=== PATIENT | male | born 1980 | race Caucasian/White ===

== ENCOUNTER 2017-08-18 08:56 | Day surgery (SDC) | payer BC ==
[~2017-08-18 08:56] MED LIST: LIDOCAINE 2% (SDV) 5 ML INJ
[2017-08-18 10:27] LABS: ADD MAN DIFF? NO
[2017-08-18 10:35] LABS: BASOPHILS % 0.3 % (0.0-2.0); EOSINOPHILS # 0.1 10^3/ul (0.0-0.5); EOSINOPHILS % 0.8 % (0.0-7.0); HEMATOCRIT 41.9 % (42.0-52.0); HEMOGLOBIN 13.7 g/dl (14.0-18.0); LYMPHOCYTES # 1.3 10^3/ul (0.8-2.9); LYMPHOCYTES % 21.7 % (15.0-51.0); MEAN CORPUSCULAR HGB CONC 32.7 g/dl (32.0-37.0); MEAN CORPUSCULAR VOLUME 88.8 fl (82.0-101.0); MONOCYTE # 0.4 10^3/ul (0.3-0.9); MONOCYTES % 6.6 % (0.0-11.0); NEUTROPHIL # 4.2 10^3/ul (1.6-7.5); NEUTROPHILS % 70.4 % (39.0-77.0); PLATELET COUNT 245 10^3/UL (140-415); RED BLOOD COUNT 4.72 10^6/ul (4.70-6.10); RED CELL DISTRIBUTION WIDTH 12.1 % (11.5-14.5)
[2017-08-18 10:35] LABS: WHITE BLOOD COUNT 5.9 10^3/ul (4.8-10.8)
[2017-08-18 10:48] LABS: ALANINE AMINOTRANSFERASE 47 IU/L (13-69); ALBUMIN 4.5 g/dl (3.3-4.9); ALBUMIN/GLOBULIN RATIO 1.45; ALKALINE PHOSPHATASE 60 IU/L (42-121); ANION GAP 17 (8-16); ASPARTATE AMINO TRANSFERASE 33 IU/L (15-46); BILIRUBIN,INDIRECT 0.8 mg/dl (0-1.1); BILIRUBIN,TOTAL 0.8 mg/dl (0.2-1.3); CARBON DIOXIDE 30 mmol/L (21-31); CHLORIDE 105 mmol/L (97-110); GLUCOSE 110 mg/dl (70-220); TOTAL PROTEIN 7.6 g/dl (6.1-8.1)
[2017-08-18 10:52] LABS: BLOOD UREA NITROGEN 12 mg/dl (7-20); CALCIUM 9.6 mg/dl (8.4-10.2); CREATININE 0.79 mg/dl (0.61-1.24); POTASSIUM 4.9 mmol/L (3.5-5.1); SODIUM 147 mmol/L (135-144)
[2017-08-18 10:55] LABS: INR 0.95; PROTIME 12.8 Sec (11.9-14.9)
[2017-08-18 10:56] LABS: PARTIAL THROMBOPLASTIN TIME 29.5 Sec (25.0-35.0)
[2017-08-18] MEDS ORDERED: SOD CHLORIDE 0.9% 1,000 ML IV (11:00)
[2017-08-18] MEDS ORDERED: PROPOFOL 20 ML (14:08)
[2017-08-18] MEDS ORDERED: ROCURONIUM 50 MG INJ (14:10)
[2017-08-18] MEDS ORDERED: CEFAZOLIN 1 GM INJ (14:10)
[2017-08-18] MEDS ORDERED: LABETALOL HCL 20MG INJ IV (14:30)
[2017-08-18] MEDS ORDERED: hydrALAzine 20 MG INJ IV (14:30)
[2017-08-18] MEDS ORDERED: MIDAZOLAM 1 MG/ML 2 ML INJ IV (14:30)
[2017-08-18] MEDS ORDERED: ALBUTEROL 0.083% (NEB) 2.5 MG/3 ML AMP HHN (14:30)
[2017-08-18] MEDS ORDERED: FENTAnyl 50 MCG/ML VIAL IV ×2 (14:30)
[2017-08-18] MEDS ORDERED: EPHEDrine SULFATE 50 MG/5 ML SYG IV (14:30)
[2017-08-18] MEDS ORDERED: OXYCODONE/ACETAMINOPHEN (5/325) TAB PO ×2 (14:30)
[2017-08-18] MEDS ORDERED: HYDROmorphONE 1 MG/5 ML IV SYRINGE IV ×2 (14:30)
[2017-08-18] MEDS ORDERED: MEPERIDINE 25 MG INJ IV (14:30)
[2017-08-18] MEDS ORDERED: METOCLOPRAMIDE 10 MG INJ IV (14:30)
[2017-08-18] MEDS ORDERED: ONDANSETRON 4 MG INJ IV (14:30)
[2017-08-18] MEDS: CEFAZOLIN 2 GM/50 ML (PMX) 50 ML IVPB (14:30)
[2017-08-18] MEDS ORDERED: DIPHENHYDRAMINE 50 MG INJ IV (14:30)
[2017-08-18] MEDS: BUPIVACAINE 0.25% (MPF) 30 ML INJ (14:53)
[2017-08-18] MEDS ORDERED: SUGAMMADEX SODIUM 200 MG/2 ML VIAL IV (15:03)
[2017-08-18] MEDS: FENTAnyl 50 MCG/ML VIAL IV ×2 (15:24→15:36)
[2017-08-18] MEDS ORDERED: HYDROCODONE/APAP (5/325) TAB PO (15:30)
[2017-08-18] MEDS: HYDROmorphONE 1 MG/5 ML IV SYRINGE IV (15:38)
== END 2017-08-18 17:53 | disposition home or self-care (01) ==
LOC: SDS 08:56
DX: K64.4 Residual hemorrhoidal skin tags (principal); K64.8 Other hemorrhoids
CPT/HCPCS: 46255; 80053; 85025; 85610; 85730; 88304

== ENCOUNTER 2018-01-19 06:55 | Day surgery (SDC) | payer BC ==
[2018-01-19] MEDS ORDERED: SOD CHLORIDE 0.9% 1,000 ML IV (07:00)
[2018-01-19] MEDS ORDERED: BUPIVACAINE 0.25% (MPF) 30 ML INJ (09:26)
[2018-01-19] MEDS ORDERED: FENTAnyl 50 MCG/ML VIAL (09:51)
[2018-01-19] MEDS ORDERED: MIDAZOLAM 1 MG/ML 2 ML INJ (09:51)
[2018-01-19] MEDS: BUPIVACAINE 0.25% (MPF) 30 ML INJ INJ ×2 (10:24)
[2018-01-19] MEDS ORDERED: LIDOCAINE 2% (SDV) 5 ML INJ (10:41)
[2018-01-19] MEDS ORDERED: CEFAZOLIN 1 GM INJ (10:41)
[2018-01-19] MEDS ORDERED: PROPOFOL 20 ML (10:41)
[2018-01-19] MEDS ORDERED: NEOSTIGMINE 3 MG/3 ML SYRINGE (10:41)
[2018-01-19] MEDS ORDERED: ROCURONIUM 50 MG INJ (10:41)
[2018-01-19] MEDS ORDERED: GLYCOPYRROLATE 0.4 MG INJ (10:41)
[2018-01-19] MEDS ORDERED: ONDANSETRON 4 MG INJ (10:42)
[2018-01-19] MEDS ORDERED: MEPERIDINE 25 MG INJ IV (11:00)
[2018-01-19] MEDS ORDERED: HYDROmorphONE 1 MG/5 ML IV SYRINGE IV (11:00)
[2018-01-19] MEDS ORDERED: METOCLOPRAMIDE 10 MG INJ IV (11:00)
[2018-01-19] MEDS ORDERED: FENTAnyl 50 MCG/ML VIAL IV (11:00)
[2018-01-19] MEDS ORDERED: DIPHENHYDRAMINE 50 MG INJ IV (11:00)
[2018-01-19] MEDS: ONDANSETRON 4 MG INJ IV (11:19)
[2018-01-19] MEDS: HYDROmorphONE 1 MG/5 ML IV SYRINGE IV ×2 (11:19→11:30)
[2018-01-19] MEDS: HYDROCODONE/APAP (5/325) TAB PO (11:20)
[2018-01-19] MEDS: CEFAZOLIN 1 GM/50 ML (PMX) 50 ML IVPB (11:29)
== END 2018-01-19 12:30 | disposition home or self-care (01) ==
LOC: SDS 06:55
DX: K64.4 Residual hemorrhoidal skin tags (principal); K64.8 Other hemorrhoids
CPT/HCPCS: 46924; 88307